=== PATIENT | male | born 1985 | race Caucasian/White ===

== ENCOUNTER 2020-03-14 14:17 | Emergency (ER) | payer OTHER ==
[2020-03-14 14:25] VITALS: PULSE 58; RESP 18
--- NOTE | 2020-03-14 15:18 | ED ---
ENT HPI - General Chief complaint: ENT Stated complaint: ENT Time Seen by Provider: 03/14/20 14:35 Source: patient Mode of arrival: ambulatory Limitations: no limitations - History of Present Illness Initial comments: Patient is a 34-year-old male presenting to the emergency Department with complaints of a sore throat and trouble swallowing for the past month. Patient states his symptoms began with just a mild sore throat over the past few weeks he has been having trouble swallowing foods. He states that he can only swallow liquids at this time, otherwise he feels like food gets stuck and he chokes a little bit. He denies any fever, chills, nausea or vomiting. He states he's never had any chest congestion, cough, nasal congestion. He denies any ear pain. He states he's never had anything like this before. He feels like his symptoms are getting worse over the past week that site came in for evaluation. He denies any pertinent past medical history, he isn't every day smoker. He denies any other drug use. He has no further complaints. Upon arrival to the ER, his vitals are stable. - Related Data Previous Rx's Medication Instructions Recorded Penicillin V Potassium [Pen Vee K] 500 mg PO BID 10 Days #20 tablet 03/14/20 methylPREDNISolone [Medrol Dose 4 mg PO DIRECTED #1 pack 03/14/20 Pack] Allergies Allergy/AdvReac Type Severity Reaction Status Date / Time bee venom protein (honey bee) Allergy Anaphylaxis Verified 03/14/20 14:22 latex Allergy Rash/Hives Verified 03/14/20 14:22 Review of Systems ROS Statement: Those systems with pertinent positive or pertinent negative responses have been documented in the HPI. ROS Other: All systems not noted in ROS Statement are negative. Past Medical History Past Medical History: GERD/Reflux History of Any Multi-Drug Resistant Organisms: None Reported Past Surgical History: Appendectomy Past Psychological History: Anxiety Smoking Status: Current every day smoker Past Alcohol Use History: None Reported Past Drug Use History: None Reported General Exam - General Exam Comments Initial Comments: GENERAL: Patient is well-developed and well-nourished. Patient is nontoxic and in no acute distress. HEAD: Atraumatic, normocephalic. EYES: Pupils equal round and reactive to light, extraocular movements intact, sclera anicteric, conjunctiva are normal. Eyelids were unremarkable. ENT: TMs normal, nares patent, oropharynx is erythematous, tonsils are not enlarged, there is no exudate. Moist mucous membranes. NECK: Normal range of motion, supple without lymphadenopathy or JVD. Soreness with palpation of bilateral lateral neck. No obvious masses felt. LUNGS: Unlabored respirations. Breath sounds clear to auscultation bilaterally and equal. No wheezes rales or rhonchi. HEART: Regular rate and rhythm without murmurs, rubs or gallops. ABDOMEN: Soft, nontender, normoactive bowel sounds. No guarding, no rebound. No masses appreciated. : Deferred MUSCULOSKELETAL: Normal extremities with adequate strength and normal range of motion, no pitting or edema. No clubbing or cyanosis. NEUROLOGICAL: Patient is alert and oriented x 3. Motor and sensory are also intact. Cranial nerves II through XII grossly intact. Symmetrical smile. Normal speech, normal gait. PSYCH: Normal mood, normal affect. SKIN: Warm, Dry, normal turgor, no rashes or lesions noted. Limitations: no limitations Course Vital Signs 03/14/20 14:22 Temperature 98 F Pulse Rate 58 L Respiratory 18 Rate Blood Pressure 133/84 O2 Sat by Pulse 100 Oximetry Medical Decision Making - Medical Decision Making Patient is a 34-year-old male here for a sore throat and trouble swallowing for the past month. His vitals are stable, no fevers. Exam reveals an erythematous oropharynx, no tonsillar enlargement, no exudate noted. Strep is negative, culture is pending. CT of the soft tissue neck reveals lymphadenopathy and additional areas of shotty adenopathy throughout the compartments of the soft tissues of the neck, no other acute finding. I discussed these findings with the patient. I will start patient on penicillin and a steroid for inflammation. I did recommend follow-up with an ENT, I will give referral. Patient is stable for discharge. He is in agreement this plan of care. Strict return parameters were discussed with the patient and he verbalized understanding. Case discussed with Dr. Muñoz. - Lab Data Lab Results 03/14/20 Range/Units 14:56 Group A Strep Rapid Negative (Negative) Disposition Clinical Impression: Sore throat, Dysphagia Disposition: HOME SELF-CARE Condition: Stable Instructions (If sedation given, give patient instructions): Pharyngitis (ED) Additional Instructions: Please return to the Emergency Department if symptoms worsen or any other concerns. Take both medications as prescribed. Follow-up with ENT as discussed. Prescriptions: methylPREDNISolone [Medrol Dose Pack] 4 mg PO DIRECTED #1 pack Penicillin V Potassium [Pen Vee K] 500 mg PO BID 10 Days #20 tablet Is patient prescribed a controlled substance at d/c from ED?: No Referrals: None,Stated [Primary Care Provider] - 1-2 days Ramos Elizabeth DO [Doctor of Osteopathic Medicine] - 1-2 days
--- NOTE | 2020-03-14 15:59 | CT ---
EXAMINATION TYPE: CT soft tissue neck wo con DATE OF EXAM: 03/14/2020 HISTORY: Difficulty swallowing x 1 month. Sore throat. COMPARISON: None CT DLP: 417.8 mGycm. Automated Exposure Control for Dose Reduction was Utilized. TECHNIQUE: CT scan of the neck is without contrast FINDINGS: Lack of contrast on a CT of the neck results in severely limited exam. Grossly the orbits are symmetric and intact. Visualized intracranial structures are symmetric. Nasoph arynx and oropharynx symmetric. Parotid and submandibular glands are homogeneous. Prevertebral soft tissue structures are within normal limits. Shotty adenopathy is seen scattered thr oughout the compartments of the neck. Thyroid is homogeneous. Lung apices are clear. Vocal cords are symmetric. Single area of pathologic adenopathy anterior to the carotid artery axial image 38 measuring short axis of 1.1 cm compatible with borderline adenopathy. Additional area of lym phadenopathy in the left carotid space measuring short axis of 1.1 cm. Incidental note made of a tiny punctate granuloma right upper lobe IMPRESSION: 1. Markedly limited exam due to lack of contrast straight bilateral carotid space lymphadenopathy and additional areas of shotty adenopathy throughout the compartments of the soft tissues of the neck.
[2020-03-14 16:49] VITALS: BP 135/73; TEMP 97.8
== END 2020-03-14 16:49 | disposition home or self-care (01) ==
LOC: EC 14:17
DX: J02.9 Acute pharyngitis, unspecified (principal); F17.200 Nicotine dependence, unspecified, uncomplicated; Z91.030 Bee allergy status; Z91.040 Latex allergy status
CPT/HCPCS: 70490; 87081; 87430; 99284

== ENCOUNTER 2020-05-09 10:29 | Day surgery (SDC) | payer OTHER ==
[2020-05-07 15:34] VITALS: BMI 31.5
[~2020-05-09 10:29] MED LIST: LACTATED RINGERS 1,000 ML IV SCH
[2020-05-09 10:45] VITALS: RESP 16; TEMP 97.8
[2020-05-09] MEDS ORDERED: PROPOFOL 10 MG/ML 20 ML VIAL IV ONE (12:03)
[2020-05-09] MEDS ORDERED: LIDOCAINE 1% INJ 10MG/ML (20 ML MDV) ONE (12:03)
--- NOTE | 2020-05-09 12:13 | P.PCN ---
Date of Procedure: 05/09/20 Procedure(s) Performed: BRIEF HISTORY: Patient is a 34-year-old, pleasant, male scheduled for an upper endoscopy as a part of evaluation of progressive dysphagia to solids for the last 6 months duration. Last 40 pounds. He has long-standing history of GERD and has been taking omeprazole 40 mg twice daily.. PROCEDURE PERFORMED: Esophagogastroduodenoscopy biopsy and dilation. PREOPERATIVE DIAGNOSIS: Progressive dysphagia to solids of 6 months duration and long-standing history of GERD. IV sedation per anesthesia. PROCEDURE: After informed consent was obtained, the patient was brought into the endoscopy unit. IV sedation was administered by Anesthesia under continuous monitoring. Initially the Olympus GIF-140 video endoscope was inserted into the mouth. Esophagus intubated without any difficulty. It was gradually advanced into the stomach and duodenum and carefully examined. The bulb and the second part of the duodenum appeared normal. The scope at this time was withdrawn to the stomach, adequately insufflated with air, and upon careful examination, mucosa of the antrum, body, cardia and the fundus appeared normal. The scope was then withdrawn into the esophagus. Small sliding Hiatal hernia noted. The GE junction was located at 37 cm from the incisors. It was a long segment of De Paz's esophagus extending from 32-37 cm from the incisors and multiple biopsies were done from this area. The rest of esophagus appeared normal. There were no erosions or ulcerations seen and the patient tolerated the procedure well. IMPRESSION: 1. Long segment De Paz's esophagus extending from 32-37 cm from the incisors with no mucosal nodularity status post multiple biopsies to rule out dysplasia. 2. I'll hernia but no evidence of esophageal stricture. RECOMMENDATIONS: The findings of this examination were discussed with the patient as well as his family.. He was advised to continue with Prilosec 40 mg twice daily and follow antireflux measures. He'll be seen in office in 2 weeks.
[2020-05-09 12:21] VITALS: BP 130/70; PULSE 68
== END 2020-05-09 13:03 | disposition home or self-care (01) ==
LOC: ORWHC2ENDO 10:29
PROVIDERS: ATTEND Internal Medicine Gastroenterology
DX: K44.9 Diaphragmatic hernia without obstruction or gangrene (principal); K22.70 Barrett's esophagus without dysplasia; K21.9 Gastro-esophageal reflux disease without esophagitis; F17.210 Nicotine dependence, cigarettes, uncomplicated; Z98.890 Other specified postprocedural states; Z79.899 Other long term (current) drug therapy; Z91.030 Bee allergy status; Z91.040 Latex allergy status
CPT/HCPCS: 88305; 43239; J2001; J2704

== ENCOUNTER → 2020-06-07 | Outpatient (CLI) | payer OTHER ==
--- NOTE | 2020-06-07 10:27 | FL ---
EXAMINATION: Cervical and Thoracic Esophagram DATE OF EXAM: 06/07/2020 CLINICAL INDICATION: 35-year-old male R13.10, unspecified dysphagia, reports food getting stuck in th e throat for 4 months, worsening. Reports a history of De Paz's esophagus. COMPARISON: None Total Fluoroscopy Time: 2 minutes 8 seconds Total images: 48 FINDINGS: The swallowing mechanism is normal. There is slight thickening of the cricopharyngeus without obstruc tion. No diverticulum or web. The thoracic portion has a normal course and caliber and normal motility. The mucosa is normal and no persistent filling defect is encountered. There is a small to moderate-sized sliding hiatal hernia and severe gastroesophageal reflux to the th oracic inlet with Valsalva maneuver. IMPRESSION: 1. Small to moderate-sized sliding hiatal hernia with severe gastroesophageal reflux to the thoracic inlet. 2. Slight CP muscle hypertrophy without obstruction. 3. No stricture. Normal appearance to the mucosa.
== END | disposition home or self-care (01) ==
LOC: RADUSWWP 08:45
PROVIDERS: ATTEND Internal Medicine Gastroenterology
DX: K44.9 Diaphragmatic hernia without obstruction or gangrene (principal); K21.9 Gastro-esophageal reflux disease without esophagitis
CPT/HCPCS: 74220

== ENCOUNTER 2022-05-01 02:29 | Emergency (ER) | payer BC, OTHER ==
[2022-05-01 02:54] VITALS: BP 126/79; PULSE 62; RESP 16; TEMP 97.9
[2022-05-01] MEDS ORDERED: PANTOPRAZOLE 40 MG/10 ML VIAL IVP STA (03:25)
[2022-05-01] MEDS ORDERED: ONDANSETRON 4 MG/2 ML VIAL IVP STA (03:25)
[2022-05-01] MEDS ORDERED: SODIUM CHLORIDE 0.9% 1,000 ML IV STA (03:25)
[2022-05-01] MEDS ORDERED: MORPHINE SULFATE 4 MG/ML SYRINGE IV STA (03:25)
[2022-05-01 03:34] LABS: Basophils # (A) 0.1 k/uL (0-0.2); Basophils % (A) 1 %; Eosinophils # (A) 0.2 k/uL (0-0.7); Eosinophils % (A) 3 %; HCT 42.2 % (39.0-53.0); HGB 14.4 gm/dL (13.0-17.5); Lymphocytes # (A) 2.4 k/uL (1.0-4.8); Lymphocytes % (A) 39 %; MCH 29.3 pg (25.0-35.0); MCHC 34.1 g/dL (31.0-37.0); Mean Platelet Volume 7.9; Monocytes # (A) 0.3 k/uL (0-1.0); Monocytes % (A) 5 %; Neutrophils % (A) 50 %; Platelet Count 258 k/uL (150-450); RDW 12.9 % (11.5-15.5)
--- NOTE | 2022-05-01 03:43 | ED ---
Abdominal Pain HPI - General Chief Complaint: Abdominal Pain Stated Complaint: Upper Abd pain, Chest Pain Time Seen by Provider: 05/01/22 03:00 Source: patient Mode of arrival: ambulatory Limitations: no limitations - History of Present Illness Initial Comments: 36-year-old male presents to the emergency Department with abdominal pain. States that it starts in the right lower quadrant and radiates up to the epigastric region. Started around 1 AM he was watching TV. No history of similar in the past. He is status post appendectomy. Admits nausea with dry heaving. No fevers. No chest pain or shortness of breath. No changes in his bowel or bladder habits. He did not attempt to take any medications at home for her symptoms. Has previously had EGD without peptic ulcer diagnosis. No other alleviating, precipitating or modifying factors - Related Data Home Medications Medication Instructions Recorded Confirmed Omeprazole [PriLOSEC] 40 mg PO BID 05/07/20 05/09/20 Previous Rx's Medication Instructions Recorded Famotidine [Pepcid] 20 mg PO BID #28 tablet 05/01/22 HYDROcodone/APAP 7.5-325MG [[place] 1 tab PO Q6HR PRN 3 Days #12 tab 05/01/22 7.5-325] Sucralfate [Carafate] 1 gm PO ACHS #56 tab 05/01/22 Allergies Allergy/AdvReac Type Severity Reaction Status Date / Time bee venom protein (honey bee) Allergy Anaphylaxis Verified 05/09/20 10:46 latex Allergy Rash/Hives Verified 05/09/20 10:46 Review of Systems ROS Statement: Those systems with pertinent positive or pertinent negative responses have been documented in the HPI. ROS Other: All systems not noted in ROS Statement are negative. Past Medical History Past Medical History: GERD/Reflux History of Any Multi-Drug Resistant Organisms: None Reported Past Surgical History: Appendectomy Smoking Status: Current every day smoker General Exam Limitations: no limitations General appearance: alert, in no apparent distress Head exam: Present: atraumatic, normocephalic, normal inspection Eye exam: Present: normal appearance, PERRL, EOMI. Absent: scleral icterus, co njunctival injection, periorbital swelling ENT exam: Present: normal exam, mucous membranes moist Neck exam: Present: normal inspection. Absent: tenderness, meningismus, lymphadenopathy Respiratory exam: Present: normal lung sounds bilaterally. Absent: respiratory distress, wheezes, rales, rhonchi, stridor Cardiovascular Exam: Present: regular rate, normal rhythm, normal heart sounds. Absent: systolic murmur, diastolic murmur, rubs, gallop, clicks GI/Abdominal exam: Present: soft, tenderness (rlq), normal bowel sounds. Absent: distended, guarding, rebound, rigid Extremities exam: Present: normal inspection, full ROM, normal capillary refill. Absent: tenderness, pedal edema, joint swelling, calf tenderness Back exam: Present: normal inspection Neurological exam: Present: alert, oriented X3, CN II-XII intact Psychiatric exam: Present: normal affect, normal mood Skin exam: Present: warm, dry, intact, normal color. Absent: rash Course Vital Signs 05/01/22 02:51 Temperature 97.9 F Pulse Rate 62 Respiratory 16 Rate Blood Pressure 126/79 O2 Sat by Pulse 98 Oximetry Medical Decision Making - Medical Decision Making Upon arrival patient was placed into room 9. Thorough history and physical exam was performed. IV access established. Patient was given morphine for pain control. Zofran given for nausea and 40 mg of Protonix as well as 1 L bolus of normal saline. Laboratory studies are conducted and reviewed. Patient does provide a urine sample. CT is performed without identifiable cause for pain. Patient reevaluated and continues to have pain and therefore he is given a second dose of pain medications. I discussed diagnosis, differential treatment options. Patient's next step in evaluation may be an EGD. They give him follow-up for GI and surgery. Patient will be started on Carafate and Pepcid in addition to the omeprazole that he is already taking. Patient will be given a prescription for [place]. He is to follow-up with the referred physicians within the next week. Take the medications as directed. Return for any new or worsening symptoms. Patient agreeable to the plan he was discharged home in stable condition - Lab Data Result diagrams: 05/01/22 02:57 05/01/22 02:57 Lab Results 05/01/22 05/01/22 05/01/22 Range/Units 02:57 02:57 02:57 WBC 6.0 (3.8-10.6) k/uL RBC 4.90 (4.30-5.90) m/uL Hgb 14.4 (13.0-17.5) gm/dL Hct 42.2 (39.0-53.0) % MCV 86.0 (80.0-100.0) fL MCH 29.3 (25.0-35.0) pg MCHC 34.1 (31.0-37.0) g/dL RDW 12.9 (11.5-15.5) % Plt Count 258 (150-450) k/uL MPV 7.9 Neutrophils % 50 % Lymphocytes % 39 % Monocytes % 5 % Eosinophils % 3 % Basophils % 1 % Neutrophils # 3.0 (1.3-7.7) k/uL Lymphocytes # 2.4 (1.0-4.8) k/uL Monocytes # 0.3 (0-1.0) k/uL Eosinophils # 0.2 (0-0.7) k/uL Basophils # 0.1 (0-0.2) k/uL PT 10.9 (9.0-12.0) sec INR 1.0 (<1.2) APTT 25.6 (22.0-30.0) sec Sodium 138 (137-145) mmol/L Potassium 4.1 (3.5-5.1) mmol/L Chloride 105 (98-107) mmol/L Carbon Dioxide 22 (22-30) mmol/L Anion Gap 11 mmol/L BUN 13 (9-20) mg/dL Creatinine 0.68 (0.66-1.25) mg/dL Est GFR (CKD-EPI)AfAm >90 (>60 ml/min/1.73 sqM) Est GFR (CKD-EPI)NonAf >90 (>60 ml/min/1.73 sqM) Glucose 107 H (74-99) mg/dL Plasma Lactic Acid Larry (0.7-2.0) mmol/L Calcium 9.1 (8.4-10.2) mg/dL Total Bilirubin 0.8 (0.2-1.3) mg/dL AST 44 (17-59) U/L ALT 21 (4-49) U/L Alkaline Phosphatase 66 (38-126) U/L Total Protein 7.2 (6.3-8.2) g/dL Albumin 4.6 (3.5-5.0) g/dL Lipase 154 (23-300) U/L Urine Color Urine Appearance (Clear) Urine pH (5.0-8.0) Ur Specific [place] (1.001-1.035) Urine Protein (Negative) Urine Glucose (UA) (Negative) Urine Ketones (Negative) Urine Blood (Negative) Urine Nitrite (Negative) Urine Bilirubin (Negative) Urine Urobilinogen (<2.0) mg/dL Ur Leukocyte Esterase (Negative) Urine RBC (0-5) /hpf Urine WBC (0-5) /hpf Ur Squamous Epith Cells (0-4) /hpf Urine Mucus (None) /hpf 05/01/22 05/01/22 Range/Units 02:57 05:32 WBC (3.8-10.6) k/uL RBC (4.30-5.90) m/uL Hgb (13.0-17.5) gm/dL Hct (39.0-53.0) % MCV (80.0-100.0) fL MCH (25.0-35.0) pg MCHC (31.0-37.0) g/dL RDW (11.5-15.5) % Plt Count (150-450) k/uL MPV Neutrophils % % Lymphocytes % % Monocytes % % Eosinophils % % Basophils % % Neutrophils # (1.3-7.7) k/uL Lymphocytes # (1.0-4.8) k/uL Monocytes # (0-1.0) k/uL Eosinophils # (0-0.7) k/uL Basophils # (0-0.2) k/uL PT (9.0-12.0) sec INR (<1.2) APTT (22.0-30.0) sec Sodium (137-145) mmol/L Potassium (3.5-5.1) mmol/L Chloride (98-107) mmol/L Carbon Dioxide (22-30) mmol/L Anion Gap mmol/L BUN (9-20) mg/dL Creatinine (0.66-1.25) mg/dL Est GFR (CKD-EPI)AfAm (>60 ml/min/1.73 sqM) Est GFR (CKD-EPI)NonAf (>60 ml/min/1.73 sqM) Glucose (74-99) mg/dL Plasma Lactic Acid Larry 1.5 (0.7-2.0) mmol/L Calcium (8.4-10.2) mg/dL Total Bilirubin (0.2-1.3) mg/dL AST (17-59) U/L ALT (4-49) U/L Alkaline Phosphatase (38-126) U/L Total Protein (6.3-8.2) g/dL Albumin (3.5-5.0) g/dL Lipase (23-300) U/L Urine Color Yellow Urine Appearance Clear (Clear) Urine pH 8.5 H (5.0-8.0) Ur Specific [place] >1.050 H (1.001-1.035) Urine Protein 1+ H (Negative) Urine Glucose (UA) Negative (Negative) Urine Ketones Negative (Negative) Urine Blood Negative (Negative) Urine Nitrite Negative (Negative) Urine Bilirubin Negative (Negative) Urine Urobilinogen <2.0 (<2.0) mg/dL Ur Leukocyte Esterase Negative (Negative) Urine RBC 2 (0-5) /hpf Urine WBC 1 (0-5) /hpf Ur Squamous Epith Cells <1 (0-4) /hpf Urine Mucus Rare H (None) /hpf - EKG Data EKG Comments: EKG demonstrates sinus rhythm with a rate of 60. TN interval 148. QRS 105. QTC 411. No acute ST segment elevations or depressions Disposition Clinical Impression: Abdominal pain Disposition: HOME SELF-CARE Condition: Stable Instructions (If sedation given, give patient instructions): Abdominal Pain (ED) Additional Instructions: Please take the new medications as prescribed. Follow up with your primary care doctor in 2- 4 days and return for any new or worsening symptoms. I recommend an EGD as the next step in evaluating your pain. Prescriptions: Sucralfate [Carafate] 1 gm PO ACHS #56 tab HYDROcodone/APAP 7.5-325MG [[place] 7.5-325] 1 tab PO Q6HR PRN 3 Days #12 tab PRN Reason: Pain Famotidine [Pepcid] 20 mg PO BID #28 tablet Is patient prescribed a controlled substance at d/c from ED?: Yes When asked, does pt state using other controlled substances?: No If prescribed controlled substance>3 days was MAPS reviewed?: Prescribed <3 Days Referrals: None,Stated [Primary Care Provider] - 1-2 days Kayla Mckeon MD [STAFF PHYSICIAN] - 1-2 days Cheyanne Timmons MD [STAFF PHYSICIAN] - 1-2 days Time of Disposition: 06:20
[2022-05-01 03:48] LABS: Partial Thromboplastin Time 25.6 sec (22.0-30.0); Prothrombin Time 10.9 sec (9.0-12.0)
[2022-05-01 04:08] LABS: ALT 21 U/L (4-49); African American GFR (CKD) >90 (>60 ml/min/1.73 sqM); Albumin 4.6 g/dL (3.5-5.0); Anion Gap 11 mmol/L; Blood Urea Nitrogen 13 mg/dL (9-20); Calcium 9.1 mg/dL (8.4-10.2); Carbon Dioxide 22 mmol/L (22-30); Chloride 105 mmol/L (98-107); Glucose 107 mg/dL (74-99); Lipase 154 U/L (23-300); Non-African American GFR(CKD) >90 (>60 ml/min/1.73 sqM); Sodium 138 mmol/L (137-145); Total Bilirubin 0.8 mg/dL (0.2-1.3); Total Protein 7.2 g/dL (6.3-8.2)
[2022-05-01 04:14] LABS: AST 44 U/L (17-59); Alkaline Phosphatase 66 U/L (38-126); Potassium 4.1 mmol/L (3.5-5.1)
--- NOTE | 2022-05-01 04:30 | CT ---
EXAMINATION TYPE: CT abdomen pelvis w con DATE OF EXAM: 05/01/2022 COMPARISON: None HISTORY: RLQ pain CT DLP: 1043.3 mGycm Automated exposure control for dose reduction was used. CONTRAST: Performed with IV Contrast, patient injected with 100 mL of Isovue 300. There is minimal subsegmental atelectasis at the lung bases. Heart size is normal. No pericardial eff usion. There is small amount of fluid reflux into the esophagus. Liver spleen and stomach pancreas ap pear intact. The bile ducts are not dilated. There is no adrenal mass. Kidneys show satisfactory cont rast opacification. No hydronephrosis. Ureters are not dilated. No retroperitoneal adenopathy. Bladde r distends smoothly. No inguinal hernia. No free fluid in the pelvis. There is no mesenteric edema. No ascites or free air. No sign of a bowel obstruction. There are clips from apparent appendectomy. Appendix not seen. There is no intestinal wall thickening. The lumbar vertebrae have normal alignment. Posterior elements are intact no compression fracture. Th e bony pelvis is intact. The hip joints are intact. Sacroiliac joints are intact. IMPRESSION: No significant abnormality in the abdomen pelvis. Minimal esophageal reflux.
[2022-05-01] MEDS ORDERED: FAMOTIDINE 20 MG/2 ML VIAL IV STA (05:07)
[2022-05-01] MEDS ORDERED: HYDROmorphone 1 MG/ML 1 ML SYRINGE IVP STA (05:07)
[2022-05-01 05:59] LABS: Appearance,Urine Clear (Clear); Bilirubin,Urine Negative (Negative); Blood,Urine Negative (Negative); Color,Urine Yellow; Glucose,Urine (UA) Negative (Negative); Ketones,Urine Negative (Negative); Leukocyte Esterase,Urine Negative (Negative); Mucus,Urine Rare /hpf; Nitrite,Urine Negative (Negative); PH, Urine 8.5 (5.0-8.0); Protein,Urine 1+ (Negative); RBC,Urine 2 /hpf (0-5); Squamous Epithelial Cell,Urine <1 /hpf (0-4); Urobilinogen,Urine <2.0 mg/dL (<2.0); WBC,Urine 1 /hpf (0-5)
[2022-05-01 06:00] LABS: Specific Gravity,Urine >1.050 (1.001-1.035)
== END 2022-05-01 06:39 | disposition home or self-care (01) ==
LOC: EC 02:29
DX: R10.9 Unspecified abdominal pain (principal); K21.9 Gastro-esophageal reflux disease without esophagitis; F17.200 Nicotine dependence, unspecified, uncomplicated; Z79.84 Long term (current) use of oral hypoglycemic drugs; Z91.040 Latex allergy status; Z91.030 Bee allergy status
CPT/HCPCS: 36415; 93005; 80053; 83605; 83690; 85025; 85610; 85730; 81001; 74177; 99284; 96374; 96375 ×4; 96361 ×3; J2270; J2405; J1170; C9113; Q9967

== ENCOUNTER → 2022-05-09 | Outpatient (CLI) | payer BC, OTHER ==
--- NOTE | 2022-05-09 13:26 | US ---
EXAMINATION TYPE: US abdomen complete DATE OF EXAM: 05/09/2022 COMPARISON: CT CLINICAL HISTORY: R10.11 RUQ ABDOMINAL PAIN. Pt states RUQ, back, and chest pain especially after eat ing TECHNIQUE: Multiple sonographic images of the abdomen are obtained. FINDINGS: EXAM MEASUREMENTS: Liver Length: 18.9 cm Gallbladder Wall: 0.2 cm CBD: 0.3 cm Spleen: 12.1 cm Right Kidney: 10.3 x 4.4 x 4.9 cm Left Kidney: 11.8 x 4.9 x 4.7 cm INTEGRATION DIRECTOR NOTES: Pancreas: Obscured by bowel gas Liver: Upper limits of normal for size, otherwise appeared wnl Gallbladder: Multiple, small, mobile gallstones- wall not thickened Evidence for sonographic Davis's sign: Yes CBD: wnl Spleen: wnl- accessory spleen= 2.0 cm Right Kidney: wnl Left Kidney: wnl, lower pole gassed out Upper IVC: wnl Abd Aorta: Proximal portion gassed out, mid and distal portions appeared wnl IMPRESSION: 1. No evidence for acute intraluminal process. 2. Multiple layering gallstones present.
== END | disposition home or self-care (01) ==
LOC: RADUSWWP 12:49
PROVIDERS: ATTEND Internal Medicine
DX: K80.20 Calculus of gallbladder without cholecystitis without obstruction (principal)
CPT/HCPCS: 76700

== ENCOUNTER → 2023-02-23 | Outpatient (CLI) | payer BC, OTHER ==
--- NOTE | 2023-02-23 10:55 | XR ---
EXAM TYPE: LUMBAR SPINE X RAY SERIES COMPARISON: NONE HISTORY: Pain TECHNIQUE: 4 views are submitted. FINDINGS: Alignment is anatomic. The pedicles are intact. The transverse processes are intact. There is surg ical clips in the right upper quadrant. Diffuse osteopenia. There is moderate degenerative change L4- 5 and mild degenerative change at remaining levels. Degenerative disc disease L5-S1. Diffuse osteopen ia and multilevel facet arthropathy. IMPRESSION: 1. Diffuse osteopenia with multilevel degenerative disc disease most marked at levels L3-S1. Recommen d MRI.
== END | disposition home or self-care (01) ==
LOC: RADXRMAIN 10:36
PROVIDERS: ATTEND Internal Medicine
DX: M54.50 Low back pain, unspecified (principal); M85.88 Other specified disorders of bone density and structure, other site
CPT/HCPCS: 72100